=== PATIENT | male | born 1985 | race Caucasian/White ===

== ENCOUNTER → 2021-02-23 | Outpatient (CLI) | payer OTHER, SELFPAY | END | disposition home or self-care (01) | LOC: LABSPEC 02-24 12:59 | PROVIDERS: Visit Provider Physician Assistant | DX: U07.1 COVID-19 (principal) | CPT/HCPCS: 87635; U0005; U0003 ==

== ENCOUNTER → 2024-06-23 | Outpatient (CLI) | payer OTHER, SELFPAY ==
[2024-06-23 23:18] LABS: Absolute Lymphocyte Count 2.12 X10^3/uL (0.83-4.51); Absolute Neutrophil Count 6.7 X10^3/uL (2.0-7.7); Basophil# 0.07 X10^3/uL; Basophil% 0.7 % (0-1); Eosinophil# 0.27 X10^3/uL; Eosinophils% 2.8 % (0-5); Hematocrit 45.2 % (40-54); Hemoglobin 14.5 g/dL (13.0-16.5); Lymphocyte # 2.12 X10^3/ul (0.83-4.51); Lymphocyte % 21.7 % (19-41); Mean Corp Hgb Conc 32.1 g/dL (32-36); Mean Corpuscular Hgb 26.5 pg (27.0-32.0); Mean Corpuscular Volume 82.5 fL (80-94); Mean Platelet Vol. 9.4 fl (6.2-12.0); Monocyte# 0.64 X10^3/uL; Monocyte% 6.6 % (0-10); NRBC Flagged by Analyzer 0 % (0-5); Neutrophil # 6.65 X10^3/uL (2.7-7.7); Platelet Count 363 K/mm3 (150-450); RBC Distribution Width CV 13.2 % (11.6-14.6); RBC Distribution Width SD 39.3 fl (35.1-43.9); Red Blood Count 5.48 M/mm3 (4.6-6.2); White Blood Count 9.8 K/mm3 (4.4-11.0)
[2024-06-25 17:07] LABS: Endomysial Antibody IgA Negative (Negative); Immunoglobulin A 339 mg/dL (90-386); t-Transglutaminase IgA <2 U/mL (0-3)
== END | disposition home or self-care (01) ==
PROVIDERS: PCP Nurse Practitioner Family; Referring Provider Nurse Practitioner Acute Care; Visit Provider Nurse Practitioner Acute Care
DX: K62.5 Hemorrhage of anus and rectum (principal); R19.4 Change in bowel habit
CPT/HCPCS: 36415; 82784; 83516; 85025; 86255

== ENCOUNTER 2024-06-30 10:48 | Day surgery (SDC) | payer OTHER, SELFPAY ==
[2024-06-30] VITALS (8 sets, daily range): BP systolic 90–151; BP diastolic 53–98; PULSE 77–89; RESP 16; TEMP 36.3–36.9; O2SAT 94–98; BMI 38.0
--- NOTE | 2024-06-30 | IMM_PTH ---
PATIENT: ABDIAS KAISER LOC: ROBERTO U#:[id number] AGE/SX: 39/M ROOM: RE06/30/[address]: Dr. Ben Solomon DO : 1985 BED: DIS: 06/30/2024 SPEC #: [id number] RECD: 07/02/24 10:29 STATUS: SURENDRA REQ #: [id number] SAUL: 06/30/24 00:[address]: Ben Solomon DEPT: IMMUNOHISTOCHEMISTRY RECD BY: Jr Bobby ENTERED: 07/02/24 10:30 SP TYPE: IMMUNO OTHR DR: Leslie Draper, AIRCRAFT RESTORER-C Tissues: Colon, NOS Procedures: MSH2 (add) MLH-1 (add) MSH6 (add) Anti-PMS2 (add) KI-67 (add) P53 (add) MOC-31 (add) HER-2-LESLI (initial) PHYSICIAN & INSTITUTION [address] [address] SPECIMEN INFORMATION: Tissue Source: Rectal mass biopsy Clinical Info: Rectal bleeding, change in bowel habits Specimen Number: [id number] CPT code: 48982,48118j8 METHODOLOGY: Deparaffinized sections of prefer/formalin-fixed tissue or PAP/DQ stained slides are incubated with monoclonal/polyclonal antibodies/oligonucleotide probes. Localization is made via biotin free immunoperoxidase method. Appropriate controls are performed and reacted as expected. Results on target cell population are indicated in the following table: RESULTS: ANTIBODY / CLONE RESULT Her-2neu (CB11) negative (0) MOC-31 (4561) positive MLH-1 (M1) positive MSH2 (25D12) positive MSH6 (44) positive PMS2 (LNG2010) positive Ki-67 (30-9) positive, high P53 (DO-7) negative (null pattern) Testing for Her2 by IHC if equivocal, recommend testing for Her2 by FISH(remove/not needed) These tests were developed and their performance characteristics determined by [facility]. They may not have been cleared or approved by the U.S. Food and Drug Administration. The FDA has determined that such clearance or approval is not necessary. The above immunohistochemical/dualISH markers are ordered and reviewed by the Pathologist. INTERPRETATION: Rectal mass, biopsy: Invasive adenocarcinoma. Result of Microsatellite Instability Study: Negative (no loss of mismatch protein; no microsatellite instability detected). 07/03/2024
--- NOTE | 2024-06-30 | IMM_PTH ---
PATIENT: ABDIAS KAISER LOC: ROEBRTO U#:[id number] AGE/SX: 39/M ROOM: RE06/30/[address]: Dr. Ben Solomon DO : 1985 BED: DIS: 06/30/2024 SPEC #: [id number] RECD: 07/02/24 10:29 STATUS: SURENDRA REQ #: [id number] SAUL: 06/30/24 00:[address]: Ben Solomon DEPT: IMMUNOHISTOCHEMISTRY RECD BY: Jr Bobby ENTERED: 07/02/24 10:30 SP TYPE: IMMUNO OTHR DR: Leslie Draper, SAMPLE CARRIER-C Tissues: Colon, NOS Procedures: MSH2 (add) MLH-1 (add) MSH6 (add) Anti-PMS2 (add) KI-67 (add) P53 (add) MOC-31 (add) HER-2-LESLI (initial) PHYSICIAN & INSTITUTION [address] [address] SPECIMEN INFORMATION: Tissue Source: Rectal mass biopsy Clinical Info: Rectal bleeding, change in bowel habits Specimen Number: [id number] CPT code: 68015,08366y7 METHODOLOGY: Deparaffinized sections of prefer/formalin-fixed tissue or PAP/DQ stained slides are incubated with monoclonal/polyclonal antibodies/oligonucleotide probes. Localization is made via biotin free immunoperoxidase method. Appropriate controls are performed and reacted as expected. Results on target cell population are indicated in the following table: RESULTS: ANTIBODY / CLONE RESULT Her-2neu (CB11) negative (0) MOC-31 (4561) positive MLH-1 (M1) positive MSH2 (25D12) positive MSH6 (44) positive PMS2 (WDG9820) positive Ki-67 (30-9) positive, high P53 (DO-7) negative (null pattern) Testing for Her2 by IHC if equivocal, recommend testing for Her2 by FISH(remove/not needed) These tests were developed and their performance characteristics determined by [facility]. They may not have been cleared or approved by the U.S. Food and Drug Administration. The FDA has determined that such clearance or approval is not necessary. The above immunohistochemical/dualISH markers are ordered and reviewed by the Pathologist. INTERPRETATION: Rectal mass, biopsy: Invasive adenocarcinoma. Result of Microsatellite Instability Study: Negative (no loss of mismatch protein; no microsatellite instability detected). 07/03/2024
--- NOTE | 2024-06-30 11:04 | PCM.HP.STD ---
HPI - General General Date of Admission: 06/30/24 Date of Service: 06/30/24 Chief Complaint: diarrhea HPI Narrative ABDIAS KAISER, is a 39 M who presents for colonoscopy today. This started in February when he was really constipated (had never been constipated before) so he drank mag citrate and ate taco teran and that took care of the constipation. After that he has only had oily, fatty diarrhea. Was on a protein diet before this happened so he has stopped the protein diet. Thursday 06/15 he had really bad bright red blood in the fatty mucous stuff. Sunday and Sunday (06/16 and 06/17) he had normal type diarrhea until late Sunday (06/17) it was fire engine red then was just fatty and mucous stuff. 06/21 it was like a damn broke and it was brown watery stool gushing out. Thursday 06/22 back to mucous, fatty and frothy and a deeper red than before. Testicles are feeling engorged as well. Has a family history of colon cancer. Had Covid pneumonia and blood clots related to that. He also has complaints of bloody stool. - intermittent episodes of rectal bleeding - bright red blood - this past Sunday, like a dam broke watery diarrhea - mucus, fatty and frothy - Paternal GM with colon cancer, Maternal GF with colon CA - he reports a weight loss of 70lbs in the past year - states this was intentional and no increase in weight loss since onset of symptoms February 2024 - denies any h/o pancreatitis - Type 2 DM - HTN - HLD - denies any recent imaging or labs - denies any heart or lung disease - former smoker - rare alcohol use - denies any abdominal pain - he has not seen his PCP for any of his GI symptoms - he has never had a colonoscopy - reports he can wake in the middle of the night with stools - denies any ATB - denies any family h/o celiac, IBD - denies taking any medications to slow down stools FOR[facility]LY [facility], [facility] Medical History Wears glasses Gout High cholesterol DVT (deep venous thrombosis) Former smoker History of edema Neuropathy Back pain Right wrist pain Acute streptococcal pharyngitis Diabetes SOB (shortness of breath) Arthritis HTN (hypertension) Home Medications ?Medication ?Instructions ?Recorded ?Last Taken ?Type allopurinol 100 mg tablet 100 mg PO DAILY 10/11/22 Unknown History atorvastatin 40 mg tablet 40 mg PO DAILY 10/11/22 Unknown History glipizide 2.5 mg tablet, extended 2.5 mg PO DAILY 10/11/22 Unknown History release 24 hr lisinopril 10 mg tablet 10 mg PO DAILY 10/11/22 Unknown History metformin 1,000 mg tablet 1,000 mg PO BID 10/11/22 Unknown History peg 3350-electrolytes 236 240 ml PO Q10M bowel prep #4,000 mL 06/23/24 Unknown Rx gram-22.74 gram-6.74 gram-5.86 gram solution (Golytely) Allergy/AdvReac Type Severity Reaction Status Date / Time No Known Allergies Allergy Verified 06/25/24 14:26 Family History Grandmother Colon cancer Grandfather Colon cancer Other Angina pectoris Blood clot in vein Cancer Cervical cancer Diabetes Kidney disease Liver disease Thyroid disorder Social History Smoking Status: Former smoker Smokeless tobacco user: chewing tobacco alcohol intake: current Alcohol type: beer Physical Exam Const alert, oriented x3, no apparent distress and healthy appearing General Appearance: cooperative GI normal to inspection, nondistended, normoactive bowel sounds, soft to palpation, non-tender and non-distended Percussion: normal to percussion Rectal Exam: deferred Assessment & Plan Assessment/Plan (1) Rectal bleeding: (2) Change in bowel habits: PLAN: Plan Assessment and Plan Assessment and Plan (1) Change in bowel habits: Status: Acute (2) Rectal bleeding: Status: Acute Orders: Orders CBC W/Diff, Automated Today K62.5 - Hemorrhage of anus and rectum, R19.4 - Change in bowel habit Pancreatic Elastase, Fecal Today K62.5 - Hemorrhage of anus and rectum, R19.4 - Change in bowel habit Calprotectin, Stool Today K62.5 - Hemorrhage of anus and rectum, R19.4 - Change in bowel habit ENTERIC PATHOGEN PANEL STOOL Today K58.9 - Irritable bowel syndrome, unspecified, K62.5 - Hemorrhage of anus and rectum, R19.4 - Change in bowel habit CDIFF (PCR) Today K62.5 - Hemorrhage of anus and rectum, R19.4 - Change in bowel habit Giardia Lamblia, Stool EIA Today K62.5 - Hemorrhage of anus and rectum, R19.4 - Change in bowel habit Celiac Disease Profile Today K62.5 - Hemorrhage of anus and rectum, R19.4 - Change in bowel habit Ova and Parasites 8623 Today K58.9 - Irritable bowel syndrome, unspecified, K62.5 - Hemorrhage of anus and rectum, R19.4 - Change in bowel habit Colonoscopy Today K62.5 - Hemorrhage of anus and rectum, R19.4 - Change in bowel habit Medications: New peg 3350-electrolytes 236-22.74-6.74 -5.86 gram (Golytely) take as directed for split dose bowel prep 240 mL PO Q10M 4,000 mL 0RF bowel prep Plan 39y/o male presents for consultation with complaints of a change in bowel habits and rectal bleeding which began February 2024. PMH is significant for DMII, HTN, HLD. He reports he was initially constipated and after drinking mag citrate he developed oily, fatty diarrhea which he reports can be frothy and contain mucus at times. Over the past two weeks he reports developing an increase in intermittent bleeding. He is experiencing frequent stools which are typically small. He denies any new medications. The past few years he has been eating a high protein/low carbohydrate diet, but reports decreasing protein intake over the past 6 weeks with no change in symptoms. He reports an intentional weight loss of 70lbs over the past year. He denies any abdominal pain. I have ordered labs, stool testing and scheduled him for a colonoscopy. Plan Details Follow Up: 2 Months
--- NOTE | 2024-06-30 12:30 | COLBX_PTH ---
PATIENT: ABDIAS KAISER LOC: EN U#:[id number] AGE/SX: 39/M ROOM: RE06/30/[address]: Dr. Ben Solomon DO : 1985 BED: DIS: 06/30/2024 SPEC #: [id number] RECD: 06/30/24 16:49 STATUS: SURENDRA SWANChristophe #: [id number] SAUL: 06/30/24 12:[address]: Ben Solomon DEPT: SURGICAL PATHOLOGY RECD BY: Martha Schultz ENTERED: 07/01/24 10:13 SP TYPE: COLON BX OT DR: Leslie Draper, BOTTLING EQUIPMENT SALES REPRESENTATIVE-C Tissues: Rectum, NOS Procedures: Surgery Specimen Level IV HEADER OPERATION: Colonoscopy with biopsies PRE-OP DIAGNOSIS: Rectal bleeding, change in bowel habits TISSUE SUBMITTED: Rectal mass biopsy MICROSCOPIC DIAGNOSIS Rectal mass, biopsy: Moderately differentiated invasive adenocarcinoma. See patria. 07/02/2024 COMMENT Immunohistochemistry ([id number]) for microsatellite instability (mismatch repair of protein) will be performed, and the results will be reported separately. This case has been reviewed in consultation with Dr. Kendrick who concurs with the above diagnosis. IDC:PW MICROSCOPIC DESCRIPTION Slides are reviewed. GROSS DESCRIPTION Received in fixative is one container labeled with the patient's name and designated Rectal mass biopsy. The specimen consists of multiple irregular fragments of light jorge soft tissue that in aggregate measure 1.7 x 0.3 x 0.3 cm. The specimen is totally submitted in one cassette. GERMÁNJeaneth 07/01/2024 TC:0 CPT:82484 ADDENDUM ADDENDUM ADDENDUM ADDENDUM ADDENDUM ADDENDUM ADDENDUM ADDENDUM ADDENDUM ADDENDUM 08/06/2024 08:27 ADDENDUM 08/06/2024 08:27 ADDENDUM 08/08/2024 08:24 ADDENDUM 08/06/2024 08:27 ADDENDUM 08/06/2024 08:27 ADDENDUM 08/06/2024 08:27 This addendum is added to incorporate an outside pathology consultation report. The case was examined at [facility] (#[id number]) and the following diagnosis was rendered. A. Rectum, mass, biopsy: Invasive adenocarcinoma, moderately differentiated. Please see complete above mentioned consultation report in EMR [facility] NGS REPORT FROM [employer] RESULT SUMMARY: ABNORMAL TUMOR TYPE: ADENOCARCINOMA CLINICAL INFORMATION: Rectal mass biopsy showed moderately differentiated adenocarcinoma (Testing performed on [id number]). HISTOPATHOLOGIC REVIEW: Tumor is present and is estimated to comprise 20-50% of nuclei in the sample. DETECTED GENOMIC ALTERATIONS: Tier I: Variants of strong clinical significance KRAS p. ([id number]) Tier II: Variant of potential clinical significance APC p. ([id number]) TP53 p ([id number]) IMMUNOTHERAPY BIOMARKERS: TUMOR MUTATION BURDEN: LOW (3.9 MUTATIONS / MB) MICROSATELLITE INSTABILITY: MSI NEGATIVE (0.8%) Please see complete report in e-chart or EMR
--- NOTE | 2024-06-30 12:38 | PRE.ANES_ITS ---
ASA Classification* ASA Classification ASA Classification: 2 Assessment & Plan Anesthesia* Anesthesia Assessment Anesthesia Assessment: Discussed sedation and/or anesthesia options, risks, benefits, and alternatives with patient/parents/legal guardian/POA. Questions invited. The patient/parents/legal guardian/POA seems to understand and agrees to proceed with anesthesia plan. Reviewed the physical assessment, medical history, allergy history and patient home medications list prior to surgery/procedure/anesthetic and documented any changes. Performed airway and anesthesia risk assessments. Anesthesia Type Anesthesia Type: MAC History Source History Obtained from:: Patient and Chart Anesthesia Focused Assessment* Temperature: 98.4 F Pulse Rate: 89 Blood Pressure: 151/98 Respiratory Rate: 16 Pulse Ox: 98 Oxygen Delivery Method: Room Air Airway Assessment Mouth opens: >3 cm Mallampati Score: I Teeth Condition: Intact and Caps/Crowns Neck Range of motion (ROM): Full ROM Comment: large facial collins Focused Labs Anesthesia Preop lab: CBC WBC 9.8 K/mm3 (4.4-11.0) 06/23/24 15:15 RBC 5.48 M/mm3 (4.6-6.2) 06/23/24 15:15 Hgb 14.5 g/dL (13.0-16.5) 06/23/24 15:15 Hct 45.2 % (40-54) 06/23/24 15:15 Plt Count 363 K/mm3 (150-450) 06/23/24 15:15 CHEMISTRY COAG Pre-Assessment Diagnosis/Proposed Procedure Planned Operative Procedure(s): CSCOPE Anesthesia History 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 When Was Last Pacemaker Check QUESTION #4 FULL TEXT: You/Your Family Experience fever (hyperthermia) with Anesthesia Last Oral Intake Last Oral intake: Last Oral Intake NPO since 00:01 06/30/24 11:48 Meds taken in AM with sips of No 06/30/24 11:48 water? Meds patient instructed to take am of surgery PONV PONV - powder coat painter: PONV - powder coat painter Female No 06/25/24 14:27 HX of Motion Sickness No 06/25/24 14:27 HX of N/V After Surgery No 06/25/24 14:27 Non-Smoker Yes 06/25/24 14:27 Duration of Surgery greater No 06/25/24 14:27 than 60 minutes Number of Risk Factors 1 06/25/24 14:27 PONV Score Low Risk 06/25/24 14:27 Height & Weight Height & Weight: Anesthesia: Height & Weight Height 6 ft 2 in 06/30/24 11:48 Weight: 134.5 kg 06/30/24 11:48 Body Mass Index (BMI) 38.0 06/30/24 11:48 Respiratory Assessment Respiratory Assessment - powder coat painter: Respiratory Tract Infection Hx - powder coat painter Hx Respiratory Tract Infection No 06/25/24 14:27 STOP Sleep Apnea STOP Sleep Apnea - powder coat painter: STOP Sleep Apnea - powder coat painter Hx Hypertension Yes: CONTROLLED WITH MED 06/25/24 14:27 Hx Sleep Apnea No 06/25/24 14:27 CPAP BIPAP Do you snore loudly (louder No 06/25/24 14:27 than talking or can be heard Do you often feel tired/ No 06/25/24 14:27 fatigued/ sleepy during daytime? Has anyone observed you stop No 06/25/24 14:27 breathing during sleep? STOP Results Negative 06/25/24 14:27 QUESTION #5 FULL TEXT : Do you snore loudly (louder than talking or can be heard through closed doors)? 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 Specify any problems Hx of Preganancy in last 3 N/A 06/25/24 14:27 Months Nurse Filling Out Transfusion NBUCHER 06/25/24 14:27 & Questions: Date: 06/25/24 06/25/24 14:27 Time: 14:28 06/25/24 14:27 Patient unable to answer at this time (ie. confused, unrespo /Reproduction History /Reproductive History - powder coat painter: /Reproductive Hx- powder coat painter Hx Now No 06/25/24 14:27 Gestational Age (in weeks): EDC: Hx Hx Para Hx Section SAB No 06/25/24 14:27 PFSH Medical History Wears glasses Gout High cholesterol DVT (deep venous thrombosis) Former smoker History of edema Neuropathy Back pain Right wrist pain Acute streptococcal pharyngitis Diabetes SOB (shortness of breath) Arthritis HTN (hypertension) Home Medications ?Medication ?Instructions ?Recorded ?Last Taken ?Type allopurinol 100 mg tablet 100 mg PO DAILY 10/11/22 06/27/24 History atorvastatin 40 mg tablet 40 mg PO DAILY 10/11/22 06/27/24 History glipizide 2.5 mg tablet, extended 2.5 mg PO DAILY 10/11/22 Unknown History release 24 hr lisinopril 10 mg tablet 10 mg PO DAILY 10/11/22 06/27/24 History metformin 1,000 mg tablet 1,000 mg PO BID 10/11/22 06/26/24 History peg 3350-electrolytes 236 240 ml PO Q10M bowel prep #4,000 mL 06/23/24 06/30/24 Rx gram-22.74 gram-6.74 gram-5.86 gram solution (Golytely) Allergy/AdvReac Type Severity Reaction Status Date / Time No Known Allergies Allergy Verified 06/30/24 11:46 Family History Grandmother Colon cancer Grandfather Colon cancer Other Angina pectoris Blood clot in vein Cancer Cervical cancer Diabetes Kidney disease Liver disease Thyroid disorder Social History Smoking Status: Former smoker Smokeless tobacco user: chewing tobacco alcohol intake: current Alcohol type: beer Review of Systems (Anesthesia) ROS Narrative System reviewed and no additional complaints, except as documented.
[2024-06-30 13:04] LABS: Bedside Glucose 102 mg/dL (74-106)
--- NOTE | 2024-06-30 13:12 | OP.COLON_ITS ---
Patient Name: Brayden Lyle Procedure Date: 06/30/2024 12:42 PM Date of : 1985 Age: 39 Procedure: Colonoscopy Indications: Clinically significant diarrhea of unexplained origin, Hematochezia Providers: Ben Solomon DO Referring MD: Rafy Blount Medicines: Monitored Anesthesia Care Patient Profile: This is a 39 year old male. Refer to note in patient chart for documentation of history and physical. Last Colonoscopy: none. The patient's first colonoscopy is today. Complications: No immediate complications. Procedure: Pre-Anesthesia Assessment: - Prior to the procedure, a History and Physical was performed, and patient medications and allergies were reviewed. The patient is competent. The risks and benefits of the procedure and the sedation options and risks were discussed with the patient. All questions were answered and informed consent was obtained. Patient identification and proposed procedure were verified by the physician in the pre-procedure area. Mental Status Examination: alert and oriented. Airway Examination: normal oropharyngeal airway and neck mobility. Respiratory Examination: clear to auscultation. CV Examination: normal. Prophylactic Antibiotics: The patient does not require prophylactic antibiotics. Prior Anticoagulants: The patient has taken no anticoagulant or antiplatelet agents except for NSAID medication. ASA Grade Assessment: II - A patient with mild systemic disease. After reviewing the risks and benefits, the patient was deemed in satisfactory condition to undergo the procedure. The anesthesia plan was to use monitored anesthesia care (MAC). Immediately prior to administration of medications, the patient was re-assessed for adequacy to receive sedatives. The heart rate, respiratory rate, oxygen saturations, blood pressure, adequacy of pulmonary ventilation, and response to care were monitored throughout the procedure. The physical status of the patient was re-assessed after the procedure. After I obtained informed consent, the scope was passed under direct vision. Throughout the procedure, the patient's blood pressure, pulse, and oxygen saturations were monitored continuously. The Colonoscope was introduced through the anus and advanced to the cecum, identified by appendiceal orifice and ileocecal valve. The colonoscopy was performed without difficulty. The patient tolerated the procedure well. The quality of the bowel preparation was 70 percent obscured. Scope In: 12:54:12 PM Scope Out: 1:04:19 PM Total Procedure Duration Time 0 hours 10 minutes 7 seconds Findings: The perianal and digital rectal examinations were normal. An ulcerated non-obstructing large mass was found in the rectum. The mass was circumferential. The mass measured ten cm in length. In addition, its diameter measured thirteen mm. Oozing was present. This was biopsied with a cold forceps for histology. Verification of patient identification for the specimen was done. Estimated blood loss was minimal. Extensive amounts of stool was found in the entire colon, precluding visualization. Multiple small and large-mouthed diverticula were found in the recto-sigmoid colon and sigmoid colon. Impression: - Malignant tumor in the rectum. Biopsied. - Stool in the entire examined colon. - Diverticulosis in the recto-sigmoid colon and in the sigmoid colon. Recommendation: - Discharge patient to home. - Resume previous diet. - Continue present medications. - Await pathology results. - Oncology referral - CT scan of the chest abdomen pelvis - CEA - Repeat colonoscopy for surveillance. Procedure Code(s): --- Professional --- 02036, Colonoscopy, flexible; with biopsy, single or multiple CPT copyright 2021 [employer]. All rights reserved. The codes documented in this report are preliminary and upon highway worker review may be revised to meet current compliance requirements. Ben Solomon DO 06/30/2024 1:12:09 PM This report has been signed electronically. Number of Addenda: 0 Note Initiated On: 06/30/2024 12:42 PM
--- NOTE | 2024-06-30 13:12 | PCM.POST.ANE ---
Anesthesia: Postop Eval I Current Vital Signs Temperature: 97.4 F Pulse Rate: 77 Blood Pressure: 90/53 Respiratory Rate: 16 Pulse Ox: 96 Oxygen Delivery Method: Room Air Assessment Airway patent: Yes Spontaneous unlabored respirations: Yes Mental status: Asleep nausea: No Vomiting: No Anesthesia Complication: No Fluid Hydration Crystalloid volume administer (ml): 60 Total IV fluid infused: 60 Progress Note Anesthesia document: Postop Eval 1 completed: Yes
--- NOTE | 2024-06-30 13:13 | OP.CCLET_ITS ---
06/30/2024 Rafy Blount Re : Colonoscopy procedure for Brayden Lyle Dear Bonny This procedure was performed on Sunday, June 30, 2024. My impressions and recommendations are as follows: Impressions : - Malignant tumor in the rectum. Biopsied. - Stool in the entire examined colon. - Diverticulosis in the recto-sigmoid colon and in the sigmoid colon. Recommendations : - Discharge patient to home. - Resume previous diet. - Continue present medications. - Await pathology results. - Oncology referral - CT scan of the chest abdomen pelvis - CEA - Repeat colonoscopy for surveillance. My findings are described in the full procedure note, which is enclosed. If I can be of further assistance, please feel free to contact me at . Sincerely, Ben Solomon, 06/30/2024 1:12:09 PM This report has been signed electronically.
--- NOTE | 2024-06-30 14:20 | PCM.POSTANE2 ---
Anesthesia Postop Eval I Sum Postop Eval Completion status Anesthesia document: Postop Eval 1 completed: Yes Anesthesia Postop Eval I Summary Anesthesia Postop Eval I Summary: Anesthesia Postop Eval I: Assessment Summary Airway patent Yes 06/30/24 13:13 [email or web address] Spontaneous unlabored Yes 06/30/24 13:13 [email or web address] respirations Mental status Asleep 06/30/24 13:13 [email or web address] nausea No 06/30/24 13:13 [email or web address] Vomiting No 06/30/24 13:13 [email or web address] Anesthesia Postop Eval I: Fluid Summary Crystalloid volume administer 60 06/30/24 13:13 [email or web address] (ml) Colloids volume administered ( ml) Blood Product volume administered (ml) Total IV fluid infused 60 06/30/24 13:13 [email or web address] Anesthesia Postop Eval I: Summary Notes Anesthesia Complication No 06/30/24 13:13 [email or web address] Anesthesia Complication Comment: Post-operative progress note Anesthesia: Postop Eval II Evaluation Mental status: Awake Pain Level: 0 nausea: No Vomiting: No Complications Anesthesia Complication: No
== END 2024-06-30 14:08 | disposition home or self-care (01) ==
LOC: EN 10:49 → AC 10:50
PROVIDERS: PCP Nurse Practitioner Family; Referring Provider Internal Medicine Gastroenterology; Visit Provider Internal Medicine Gastroenterology
PROC: 0DJD8ZZ Inspection of Lower Intestinal Tract, Via Natural or Artificial Opening Endoscopic (ICD-10-PCS; CPT 45378; principal; 2024-06-30 12:25)
DX: C20 Malignant neoplasm of rectum (principal); E11.40 Type 2 diabetes mellitus with diabetic neuropathy, unspecified; K57.30 Diverticulosis of large intestine without perforation or abscess without bleeding; K62.5 Hemorrhage of anus and rectum; E78.00 Pure hypercholesterolemia, unspecified; Z80.0 Family history of malignant neoplasm of digestive organs; I10 Essential (primary) hypertension; F17.220 Nicotine dependence, chewing tobacco, uncomplicated; R19.4 Change in bowel habit; Z79.899 Other long term (current) drug therapy; Z79.84 Long term (current) use of oral hypoglycemic drugs
CPT/HCPCS: 45380; 81002; 82962; 88305; 88341; 88342; A4216; J2405

== ENCOUNTER → 2024-07-08 | Outpatient (CLI) | payer OTHER, SELFPAY ==
[2024-07-08 11:17] LABS: ALB/GLOB Ratio 1.1 RATIO (0.9-2.4); AST(SGOT) 15 U/L (15-37); Alanine Aminotransfer ALT/SGPT 17 U/L (16-61); Albumin, Serum 3.9 g/dL (3.2-5.0); Alkaline Phosphatase 75 U/L (45-117); Anion Gap 9 (5-15); BUN 13 mg/dL (7-18); Calcium,Total 9.4 mg/dL (8.5-10.1); Chloride 100 mmol/L (98-107); Creatinine, Serum 0.93 mg/dL (0.70-1.30); EST Glomerular Filtration Rate 97 mL/min (>60); Est Glom Filt Rate - Afr Amer 117 mL/min (>60); Globulin 3.6 g/dL (2.2-4.2); Glucose 298 mg/dL (74-106); Potassium 4.1 mmol/L (3.5-5.1); Protein, Total 7.5 g/dL (6.4-8.2); Sodium Level 134 mmol/L (136-145)
== END | disposition home or self-care (01) ==
PROVIDERS: PCP Nurse Practitioner Family; Referring Provider Nurse Practitioner Acute Care; Visit Provider Nurse Practitioner Acute Care
DX: K62.5 Hemorrhage of anus and rectum (principal); R19.4 Change in bowel habit; K62.89 Other specified diseases of anus and rectum
CPT/HCPCS: 36415; 80053; 82378

== ENCOUNTER → 2024-07-21 | Outpatient (CLI) | payer OTHER, SELFPAY ==
--- NOTE | 2024-07-21 07:40 | CT_ITS ---
EXAM: CT Abdomen and Pelvis With Intravenous Contrast CLINICAL INDICATION: TECHNIQUE: Axial computed tomography images of the abdomen and pelvis with intravenous contrast. This CT exam was performed using one or more of the following dose reduction techniques: automated exposure control, adjustment of the mA and/or kV according to patient size, and/or use of iterative reconstruction technique. COMPARISON: No relevant prior studies available. FINDINGS: LUNG BASES: Unremarkable. No mass. No consolidation. ABDOMEN: LIVER: Multiple ill-defined hypodense lesion of the liver, concerning for metastasis or primary neoplastic process. Clinical correlation is recommended. GALLBLADDER AND BILE DUCTS: Unremarkable. No calcified stones. No ductal dilation. PANCREAS: Unremarkable. No mass. No ductal dilation. SPLEEN: Unremarkable. No splenomegaly. ADRENALS: Unremarkable. No mass. KIDNEYS AND URETERS: Unremarkable. No solid mass. No hydronephrosis. STOMACH AND BOWEL: Fecal retention in the colon consistent with constipation. No obstruction. No mucosal thickening. PELVIS: APPENDIX: No findings to suggest acute appendicitis. BLADDER: Unremarkable. No mass. REPRODUCTIVE: Unremarkable as visualized. ABDOMEN and PELVIS: INTRAPERITONEAL SPACE: Unremarkable. No free air. No significant fluid collection. BONES/JOINTS: No acute fracture. No dislocation. SOFT TISSUES: Umbilical hernia containing fat. Inguinal hernias, bilaterally. VASCULATURE: Unremarkable. No abdominal aortic aneurysm. LYMPH NODES: Unremarkable. No enlarged lymph nodes. CT/Abdomen/Pelvis WITH Contrast IMPRESSION: 1. Multiple ill-defined hypodense lesion of the liver, concerning for metastas is or primary neoplastic process. Clinical correlation is recommended. 2. Fecal retention in the colon consistent with constipation. Underlying mass can not be excluded. 3. Umbilical hernia containing fat. 4. Inguinal hernias, bilaterally. Reading [facility]
== END | disposition home or self-care (01) ==
PROVIDERS: PCP Nurse Practitioner Family; Referring Provider Nurse Practitioner Acute Care; Visit Provider Nurse Practitioner Acute Care
DX: K62.5 Hemorrhage of anus and rectum (principal); R19.4 Change in bowel habit; K62.89 Other specified diseases of anus and rectum
CPT/HCPCS: 74177; Q9967

== ENCOUNTER → 2024-07-24 | Outpatient (CLI) | payer OTHER, SELFPAY ==
--- NOTE | 2024-07-24 13:56 | MRI_ITS ---
PROCEDURE: PELVIS W/WO CONTRAST REASON FOR EXAM: Staging rectal cancer. Bloody stool. TECHNIQUE: Multiplanar, multisequence MRI of the pelvis/rectum before and after IV gadolinium infusion. CONTRAST: 26 cc Clariscan intravenous COMPARISON: CT abdomen pelvis July 21, 2024. FINDINGS: Distal sigmoid colon circumferential/circular mass extending just below the peritoneal reflection into the superior most rectum. Tumor length is approximately 8 cm. Greatest thickness of tumor is along the left distal sigmoid wall measuring 2.6 cm. Bulky metastatic tumor implant in the sigmoid mesocolon measuring 4.7 x 3.1 x 2.8 cm. No colonic obstruction identified. The perirectal soft tissues are unremarkable. Mesorectal fascia and fat are normal. Superior left perirectal lymph node measuring 7.5 mm, suspicious for metastatic disease. No other perirectal adenopathy. No pelvic sidewall or inguinal adenopathy. Incidental moderate size umbilical fat containing hernia. MRI/Pelvis W/WO Contrast IMPRESSION: Distal sigmoid colon tumor measuring 8 cm in length extending just below the pe ritoneal reflection into the superior most rectum. Adjacent metastatic mass in the sigmoid mesocolon, measuring 4.7 cm. Probable metastatic upper left perirectal lymph node measuring 7.5 mm. No involvement of the mid or lower rectum. Reading Location: [facility]
== END | disposition home or self-care (01) ==
LOC: MRI 13:50
PROVIDERS: PCP Nurse Practitioner Family; Referring Provider Internal Medicine Hematology & Oncology; Visit Provider Internal Medicine Hematology & Oncology
DX: C20 Malignant neoplasm of rectum (principal)
CPT/HCPCS: 72197; A9575

== ENCOUNTER 2024-07-30 07:31 | Day surgery (SDC) | payer OTHER, SELFPAY ==
[2024-07-22 11:13] VITALS: BP 146/99; PULSE 73; RESP 16; TEMP 36.3; O2SAT 98; BMI 38.2
[2024-07-22 11:44] LABS: Bedside Glucose 156 mg/dL (74-106)
--- NOTE | 2024-07-22 12:11 | PRE.ANES_ITS ---
ASA Classification* ASA Classification ASA Classification: 2 Assessment & Plan Anesthesia* Anesthesia Assessment Anesthesia Assessment: Discussed sedation and/or anesthesia options, risks, benefits, and alternatives with patient/parents/legal guardian/POA. Questions invited. The patient/parents/legal guardian/POA seems to understand and agrees to proceed with anesthesia plan. Reviewed the physical assessment, medical history, allergy history and patient home medications list prior to surgery/procedure/anesthetic and documented any changes. Performed airway and anesthesia risk assessments. Anesthesia Type Anesthesia Type: MAC History Source History Obtained from:: Patient and Chart Anesthesia Focused Assessment* Temperature: 97.4 F Pulse Rate: 73 Blood Pressure: 146/99 Respiratory Rate: 16 Pulse Ox: 98 Oxygen Delivery Method: Room Air Airway Assessment Mouth opens: >3 cm Mallampati Score: II Teeth Condition: Missing (Patient has a couple missing molars. Rest of the teeth are tight.) Neck Range of motion (ROM): Limited ROM (Slight decrease in extension) Focused Labs Anesthesia Preop lab: CBC WBC 9.9 K/mm3 (4.4-11.0) 07/08/24 11:37 07/08/24 RBC 5.21 M/mm3 (4.6-6.2) 07/08/24 11:37 07/08/24 Hgb 14.2 g/dL (13.0-16.5) 07/08/24 11:37 07/08/24 Hct 41.7 % (40-54) 07/08/24 11:37 07/08/24 Plt Count 302 K/mm3 (150-450) 07/08/24 11:37 07/08/24 CHEMISTRY Potassium 4.1 mmol/L (3.5-5.1) 07/08/24 10:09 07/08/24 Sodium 134 mmol/L (136-145) L 07/08/24 10:09 07/08/24 Magnesium 1.6 mg/dL (1.6-2.6) 07/08/24 11:37 07/08/24 Phosphorus 3.0 mg/dL (2.5-4.9) 07/08/24 11:37 07/08/24 BUN 13 mg/dL (7-18) 07/08/24 10:09 07/08/24 Creatinine 0.93 mg/dL (0.70-1.30) 07/08/24 10:09 07/08/24 Glucose 298 mg/dL (74-106) H 07/08/24 10:09 07/08/24 POC Glucose 156 mg/dL (74-106) H 07/22/24 11:08 07/22/24 COAG Pre-Assessment Diagnosis/Proposed Procedure Planned Operative Procedure(s): LEFT SUBCLAVIAN MEDPORT PLACEMENT Anesthesia History 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 When Was Last Pacemaker Check QUESTION #4 FULL TEXT: You/Your Family Experience fever (hyperthermia) with Anesthesia Last Oral Intake Last Oral intake: Last Oral Intake NPO since 07:00 07/22/24 11:13 Meds taken in AM with sips of No 07/22/24 11:13 water? Meds patient instructed to take am of surgery Any additional information?: Yes NPO since: 07:00 (Patient water at 7 AM. 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 model maker Female No 07/21/24 09:19 HX of Motion Sickness No 07/21/24 09:19 HX of N/V After Surgery No 07/21/24 09:19 Non-Smoker Yes 07/21/24 09:19 Duration of Surgery greater No 07/21/24 09:19 than 60 minutes Number of Risk Factors 1 07/21/24 09:19 PONV Score Low Risk 07/21/24 09:19 Height & Weight Height & Weight: Anesthesia: Height & Weight Height 6 ft 2 in 07/22/24 11:13 Weight: 135.171 kg 07/22/24 11:13 Body Mass Index (BMI) 38.2 07/22/24 11:13 Respiratory Assessment Respiratory Assessment - jewelry model maker: Respiratory Tract Infection Hx - jewelry model maker Hx Respiratory Tract Infection No 07/21/24 09:19 STOP Sleep Apnea STOP Sleep Apnea - jewelry model maker: STOP Sleep Apnea - jewelry model maker Hx Hypertension Yes: CONTROLLED WITH MED 07/21/24 09:19 Hx Sleep Apnea No 07/21/24 09:19 CPAP BIPAP Do you snore loudly (louder Yes 07/21/24 09:19 than talking or can be heard Do you often feel tired/ No 07/21/24 09:19 fatigued/ sleepy during daytime? Has anyone observed you stop No 07/21/24 09:19 breathing during sleep? STOP Results Positive 07/21/24 09:19 QUESTION #5 FULL TEXT : Do you snore loudly (louder than talking or can be heard through closed doors)? 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 Specify any problems Hx of Preganancy in last 3 N/A 07/21/24 09:19 Months Nurse Filling Out Transfusion DSCHRIBER 07/21/24 09:19 & Questions: Date: 07/21/24 07/21/24 09:19 Time: 09:20 07/21/24 09:19 Patient unable to answer at this time (ie. confused, unrespo /Reproduction History /Reproductive History - jewelry model maker: /Reproductive Hx- jewelry model maker Hx Now Gestational Age (in weeks): EDC: Hx Hx Para Hx Section SAB No 07/21/24 09:19 Active Medications Active Medications: Current Medications Generic Name Dose Route Start Last Admin Trade Name Freq PRN Reason Stop Dose Admin Cefazolin Sodium 3 gm/ N/A 30 mls @ 600 mls/hr 07/22/24 12:15 IV 07/22/24 12:17 PREOP ONE PFS Medical History Cancer Wears glasses Gout High cholesterol DVT (deep venous thrombosis) Former smoker History of edema Neuropathy Back pain Right wrist pain Acute streptococcal pharyngitis Diabetes SOB (shortness of breath) Arthritis HTN (hypertension) Home Medications ?Medication ?Instructions ?Recorded ?Last Taken ?Type allopurinol 100 mg tablet 100 mg PO DAILY 10/11/2204/04 History atorvastatin 40 mg tablet 40 mg PO DAILY 10/11/2207/12 History glipizide 2.5 mg tablet, extended 2.5 mg PO DAILY 08/3107/21/24 History release 24 hr lisinopril 10 mg tablet 10 mg PO DAILY 10/11/2207/12 History metformin 1,000 mg tablet 1,000 mg PO BID 10/11/2204/04 History alprazolam 0.5 mg tablet 0.5 mg PO BID PRN PRN anxiet y 07/22/24 07/21/24 History oxycodone-acetaminophen 5 mg-325 1 - 2 tab PO Q4H PRN PRN pain 07/22/24 07/21/24 History mg tablet Allergy/AdvReac Type Severity Reaction Status Date / Time No Known Allergies Allergy Verified 07/22/24 11:09 Family History Grandmother Colon cancer Grandfather Colon cancer Mother Thyroid disorder Other Angina pectoris Blood clot in vein Cancer Diabetes Kidney disease Liver disease Surgical History Hx of colonoscopy Social History Smoking Status: Former smoker Tobacco: How many years used: 10 Smokeless tobacco user: chewing tobacco alcohol intake: current alcohol intake frequency: holidays/special occasions only Review of Systems (Anesthesia) ROS Narrative System reviewed and no additional complaints, except as documented.
[2024-07-22 12:19] VITALS: BP 146/99; PULSE 73; RESP 16; TEMP 36.3; O2SAT 98
[2024-07-30] VITALS (8 sets, daily range): BP systolic 122–132; BP diastolic 71–91; PULSE 84–118; RESP 16–20; TEMP 36.1–36.9; O2SAT 96–97; BMI 37.9
--- NOTE | 2024-07-30 08:19 | PCM.PRE.AN2 ---
ASA Classification* ASA Classification ASA Classification: 2 Assessment & Plan Anesthesia* Anesthesia Assessment Anesthesia Assessment: Discussed sedation and/or anesthesia options, risks, benefits, and alternatives with patient/parents/legal guardian/POA. Questions invited. The patient/parents/legal guardian/POA seems to understand and agrees to proceed with anesthesia plan. Reviewed the physical assessment, medical history, allergy history and patient home medications list prior to surgery/procedure/anesthetic and documented any changes. Performed airway and anesthesia risk assessments. Anesthesia Type Anesthesia Type: MAC History Source History Obtained from:: Patient and Chart Anesthesia Focused Assessment* Temperature: 97.3 F Pulse Rate: 84 Blood Pressure: 129/71 Respiratory Rate: 18 Pulse Ox: 97 Oxygen Delivery Method: Room Air Airway Assessment Mouth opens: >3 cm Mallampati Score: I Teeth Condition: Intact Neck Range of motion (ROM): Full ROM Focused Labs Anesthesia Preop lab: CBC WBC 9.9 K/mm3 (4.4-11.0) 07/08/24 11:37 07/08/24 RBC 5.21 M/mm3 (4.6-6.2) 07/08/24 11:37 07/08/24 Hgb 14.2 g/dL (13.0-16.5) 07/08/24 11:37 07/08/24 Hct 41.7 % (40-54) 07/08/24 11:37 07/08/24 Plt Count 302 K/mm3 (150-450) 07/08/24 11:37 07/08/24 CHEMISTRY Potassium 4.1 mmol/L (3.5-5.1) 07/08/24 10:09 07/08/24 Sodium 134 mmol/L (136-145) L 07/08/24 10:09 07/08/24 Magnesium 1.6 mg/dL (1.6-2.6) 07/08/24 11:37 07/08/24 Phosphorus 3.0 mg/dL (2.5-4.9) 07/08/24 11:37 07/08/24 BUN 13 mg/dL (7-18) 07/08/24 10:09 07/08/24 Creatinine 0.93 mg/dL (0.70-1.30) 07/08/24 10:09 07/08/24 Glucose 298 mg/dL (74-106) H 07/08/24 10:09 07/08/24 POC Glucose 156 mg/dL (74-106) H 07/22/24 11:08 07/22/24 COAG Pre-Assessment Diagnosis/Proposed Procedure Planned Operative Procedure(s): LEFT SUBCLAVIAN MEDPORT PLACEMENT Anesthesia History 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 When Was Last Pacemaker Check QUESTION #4 FULL TEXT: You/Your Family Experience fever (hyperthermia) with Anesthesia Last Oral Intake Last Oral intake: Last Oral Intake NPO since 23:45 07/30/24 07:57 Meds taken in AM with sips of No 07/30/24 07:57 water? 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 - petroleum sampler Female No 07/21/24 09:19 HX of Motion Sickness No 07/21/24 09:19 HX of N/V After Surgery No 07/21/24 09:19 Non-Smoker Yes 07/21/24 09:19 Duration of Surgery greater No 07/21/24 09:19 than 60 minutes Number of Risk Factors 1 07/21/24 09:19 PONV Score Low Risk 07/21/24 09:19 Height & Weight Height & Weight: Anesthesia: Height & Weight Height 6 ft 2 in 07/30/24 07:57 Weight: 134 kg 07/30/24 07:57 Body Mass Index (BMI) 37.9 07/30/24 07:57 Respiratory Assessment Respiratory Assessment - petroleum sampler: Respiratory Tract Infection Hx - petroleum sampler Hx Respiratory Tract Infection No 07/21/24 09:19 STOP Sleep Apnea STOP Sleep Apnea - petroleum sampler: STOP Sleep Apnea - petroleum sampler Hx Hypertension Yes: CONTROLLED WITH MED 07/21/24 09:19 Hx Sleep Apnea No 07/21/24 09:19 CPAP BIPAP Do you snore loudly (louder Yes 07/21/24 09:19 than talking or can be heard Do you often feel tired/ No 07/21/24 09:19 fatigued/ sleepy during daytime? Has anyone observed you stop No 07/21/24 09:19 breathing during sleep? STOP Results Positive 07/21/24 09:19 QUESTION #5 FULL TEXT : Do you snore loudly (louder than talking or can be heard through closed doors)? 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 Specify any problems Hx of Preganancy in last 3 N/A 07/21/24 09:19 Months Nurse Filling Out Transfusion DSCHRIBER 07/21/24 09:19 & Questions: Date: 07/21/24 07/21/24 09:19 Time: 09:20 07/21/24 09:19 Patient unable to answer at this time (ie. confused, unrespo /Reproduction History /Reproductive History - petroleum sampler: /Reproductive Hx- petroleum sampler Hx Now Gestational Age (in weeks): EDC: Hx Hx Para Hx Section SAB No 07/21/24 09:19 Active Medications Active Medications: Current Medications Generic Name Dose Route Start Last Admin Trade Name Freq PRN Reason Stop Dose Admin Cefazolin Sodium 3 gm/ N/A 30 mls @ 600 mls/hr 07/30/24 09:00 IV 07/30/24 09:02 PREOP ONE PFSH Medical History Regional lymph node metastasis present Metastasis to liver Cancer Wears glasses Gout High cholesterol DVT (deep venous thrombosis) Former smoker History of edema Neuropathy Back pain Right wrist pain Acute streptococcal pharyngitis Diabetes SOB (shortness of breath) Arthritis HTN (hypertension) Home Medications ?Medication ?Instructions ?Recorded ?Last Taken ?Type allopurinol 100 mg tablet 100 mg PO DAILY 10/11/22 07/29/24 History atorvastatin 40 mg tablet 40 mg PO DAILY 10/11/22 07/29/24 History glipizide 2.5 mg tablet, extended 2.5 mg PO DAILY 10/11/22 07/29/24 History release 24 hr lisinopril 10 mg tablet 10 mg PO DAILY 10/11/22 07/29/24 History metformin 1,000 mg tablet 1,000 mg PO BID 10/11/22 07/29/24 History alprazolam 0.5 mg tablet 0.5 mg PO BID PRN PRN anxiety 07/22/24 Unknown History oxycodone-acetaminophen 5 mg-325 1 - 2 tab PO Q4H PRN PRN pain 07/22/24 07/29/24 History mg tablet trazodone 50 mg tablet 50 mg PO QHS PRN insomnia 07/28/24 07/29/24 History Allergy/AdvReac Type Severity Reaction Status Date / Time No Known Allergies Allergy Verified 07/30/24 07:55 Family History Grandmother Colon cancer Grandfather Colon cancer Mother Thyroid disorder Other Angina pectoris Blood clot in vein Cancer Diabetes Kidney disease Liver disease Surgical History Hx of colonoscopy Social History Smoking Status: Former smoker Tobacco: How many years used: 10 Smokeless tobacco user: chewing tobacco alcohol intake: current alcohol intake frequency: holidays/special occasions only Review of Systems (Anesthesia) ROS Narrative System reviewed and no additional complaints, except as documented.
--- NOTE | 2024-07-30 08:22 | PCM.HP.STD ---
HPI - General General Date of Admission: 07/30/24 Date of Service: 07/30/24 Chief Complaint: port placement HPI Narrative ABDIAS KAISER, is a 39 M who presents for medport placement [facility] Medical History Regional lymph node metastasis present Metastasis to liver Cancer Wears glasses Gout High cholesterol DVT (deep venous thrombosis) Former smoker History of edema Neuropathy Back pain Right wrist pain Acute streptococcal pharyngitis Diabetes SOB (shortness of breath) Arthritis HTN (hypertension) Home Medications ?Medication ?Instructions ?Recorded ?Last Taken ?Type allopurinol 100 mg tablet 100 mg PO DAILY 10/11/22 07/29/24 History atorvastatin 40 mg tablet 40 mg PO DAILY 10/11/22 07/29/24 History glipizide 2.5 mg tablet, extended 2.5 mg PO DAILY 10/11/22 07/29/24 History release 24 hr lisinopril 10 mg tablet 10 mg PO DAILY 10/11/22 07/29/24 History metformin 1,000 mg tablet 1,000 mg PO BID 10/11/22 07/29/24 History alprazolam 0.5 mg tablet 0.5 mg PO BID PRN PRN anxiety 07/22/24 Unknown History oxycodone-acetaminophen 5 mg-325 1 - 2 tab PO Q4H PRN PRN pain 07/22/24 07/29/24 History mg tablet trazodone 50 mg tablet 50 mg PO QHS PRN insomnia 07/28/24 07/29/24 History Allergy/AdvReac Type Severity Reaction Status Date / Time No Known Allergies Allergy Verified 07/30/24 07:55 Family History Grandmother Colon cancer Grandfather Colon cancer Mother Thyroid disorder Other Angina pectoris Blood clot in vein Cancer Diabetes Kidney disease Liver disease Surgical History Hx of colonoscopy Social History Smoking Status: Former smoker Tobacco: How many years used: 10 Smokeless tobacco user: chewing tobacco alcohol intake: current alcohol intake frequency: holidays/special occasions only Vital Signs Vital Signs Vital Signs: 07/30/24 07:57 07/30/24 07:57 Temperature 97.3 F L Temperature Source Temporal Pulse Rate 84 Respiratory Rate 18 Respiratory Pattern Normal Blood Pressure 129/71 H Blood Pressure Mean 90 Blood Pressure Source Monitor Blood Pressure Position Left Lateral Blood Pressure Location Right Arm Pulse Ox 97 Oxygen Delivery Method Room Air Weight Weight: 295 lb 6.711 oz Body Mass Index (BMI) 37.9 Physical Exam Narrative AAO x 3 NAD Assessment & Plan Assessment/Plan (1) Metastasis to liver: (2) Encounter for insertion of venous access port: PLAN: medport placement today
[2024-07-30] MEDS: Cefazolin 3 GM in Syringe 1 EACH IV (08:48)
[2024-07-30] MEDS: Bupivacaine 0.5% PF 10 ML VIAL (09:03)
[2024-07-30] MEDS: Lidocaine 1% /Epi 1:100 (20ml) 20 ML Vial (09:03)
--- NOTE | 2024-07-30 09:42 | EX.PCM.DISCH ---
Discharge Instructions Diet Discharge Diet: Light diet - advance as tolerated Activity Discharge Activity: Return to Normal Activity and May Shower May shower in (days): 1 Ice area for (Minutes): 30 Dressing / Incision Call your doctor if your incision/area has: Continuous Slow Oozing, Sudden Increased Bleeding, Increased Pain/ Swelling, Increased Redness, Foul Smelling Discharge and Swelling at the incision site Call your doctor if you observe: Fever of 101 or Higher Remove Dressing in: 3 days Cleanse incision/area with: Soap & Water Follow Up Care Test Results: Test results from this visit will be discussed in further detail at your follow-up appointment, if applicable. Discharge Plan Admission Primary Reason for Your Visit: Mediport placement Attending Provider: Osmany Simmons Primary Care Provider: Leslie Draper NP Instructions Print Language: Sinhala Discharge Orders/Prescriptions Prescriptions: New oxycodone-acetaminophen [Percocet] 5-325 mg tablet 1 tab PO Q8H PRN (Reason: pain) 3 Days Qty: 7 0RF Continued metformin 1,000 mg tablet 1,000 mg PO BID Patient Comments: TAKE 1 TABLET BY MOUTH TWICE DAILY atorvastatin 40 mg tablet 40 mg PO DAILY allopurinol 100 mg tablet 100 mg PO DAILY Patient Comments: TAKE 1 TABLET BY MOUTH ONCE DAILY lisinopril 10 mg tablet 10 mg PO DAILY Patient Comments: TAKE 1 TABLET BY MOUTH ONCE DAILY glipizide 2.5 mg tablet extended release 24hr 2.5 mg PO DAILY Patient Comments: TAKE 1 TABLET BY MOUTH ONCE DAILY trazodone 50 mg tablet 50 mg PO QHS PRN (Reason: insomnia) oxycodone-acetaminophen 5-325 mg tablet 1 - 2 tab PO Q4H PRN PRN (Reason: pain) alprazolam 0.5 mg tablet 0.5 mg PO BID PRN PRN (Reason: anxiety) Referrals / Follow Up: Leslie Draper NP, MEDICAL TECHNOLOGIST [facility]AT[facility] [Primary Care Provider] - Disposition Disposition (needs filled in before D/C Order can be placed): Home, Self Care
--- NOTE | 2024-07-30 09:44 | PCM.POST.ANE ---
Anesthesia: Postop Eval I Current Vital Signs Temperature: 97 F Pulse Rate: 112 Blood Pressure: 128/91 Respiratory Rate: 20 Pulse Ox: 97 Assessment Airway patent: Yes Spontaneous unlabored respirations: Yes nausea: No Vomiting: No Anesthesia Complication: No Fluid Hydration Crystalloid volume administer (ml): 10 Total IV fluid infused: 10 Progress Note Anesthesia document: Postop Eval 1 completed: Yes
--- NOTE | 2024-07-30 09:45 | OP.PCM_ITS ---
Problems Associated Problem List Diagnoses (1) Rectal cancer: Procedures Cardiovascular CF Procedures [id number]: [id number] Insert tunneled cv cath Operative Report (Standard) Operative Information Date of Procedure: 07/30/24 Pre-Operative Diagnosis: Rectal cancer Post-Operative Diagnosis: Rectal cancer Surgery/Procedure Performed: Left subclavian Mediport placement with C arm forest pathology professor: No Type of Anesthesia: Local and MAC RN Documented Start/Stop Times: Operation Date: 07/30/24 09:00 Case Time Into Pre-Op 07/30/24 07:41 Out of Pre-Op 07/30/24 08:40 Anesthesia Start 07/30/24 08:45 Into Room 07/30/24 08:45 Procedure Start 07/30/24 09:07 Procedure End 07/30/24 09:34 Anesthesia End 07/30/24 09:39 Out of Room 07/30/24 09:39 Procedure Start Time: 09:07 Procedure Stop Time: 09:34 Select all DRAINS/GRAFTS/IMPLANTS that apply: Implanted device Implanted device details: PowerPort Mediport Special Medications: 3 g Ancef Estimated Blood Loss: 5 mL Specimen collected: No Description of surgery: The patient is a 39-year-old male recently discovered to have rectal cancer. It has been oncology team is recommending chemotherapy. It was recommended that he undergo Mediport placement to help facilitate the chemotherapy process. He was seen in the office. I discussed the details of the procedure including the risks benefits and alternatives. He wished to proceed. Patient was brought the operating room today following informed consent. Preoperative antibiotics were given and a timeout was performed. He was placed supine on the operative table with arms outstretched on arm boards. MAC a nesthesia was induced once adequately sedated the left upper chest and neck region were then prepped and draped in the usual sterile manner. His arms were at his sides. He was placed in mild Trendelenburg positioning. Local anesthetic was then injected into the left lovely-clavicular area. Next using the supplied needle and syringe I was able to gain access to the left subclavian vein. The blood return was a dark red, nonpulsatile, venous appearing blood return. The guidewire was then threaded through the aperture and the needle. This was then secured to the drapes. C-arm was brought into confirm good positioning of the tubing. The pocket was then created by making a small incision in the left upper chest. Bovie electrocautery was then used dissect down through subcutaneous tissue. A subcutaneous pocket was then created large enough to accommodate the port hub. The tubing was then inserted into the incision and brought out through a small incision at the entry point of the gu idewire. This was trimmed about 25 cm. The tubing was then connected to the port. The port was then affixed to the chest wall using Prolene suture. Once this was performed the dilator and tear-away sheath were then threaded over the guidewire. This was performed under C-arm. This was placed without incident. The guidewire and dilator were then removed thus leaving the sheath in place. The free end of the tubing was then threaded down the sheath and the sheath was then extracted as the tubing was advanced. The port was then tested using injectable saline. It eduardo and flushed easily with good blood return this was then repeated with heparin flush. C-arm was then used to again confirmed good position of the tubing and the port. There were no acute kinks or bends. The incision was then closed using 3-0 Vicryl and 4-0 Vicryl. Skin glue was applied as dressing along with 2 x 2 gauze and an OpSite. He was awakened from anesthesia and taken to recovery in good condition. Surgical Findings: See operative note Complications Complications: No Admit VTE Documentation VTE Present on Admission: No VTE Mechan Device Prophylaxis: SCD's VTE Pharm Prophylaxis ordered?: No Reason prophylaxis not ordered: Treatment Not Indicated
[2024-07-30 09:58] LABS: Bedside Glucose 180 mg/dL (74-106)
--- NOTE | 2024-07-30 10:00 | RAD_ITS ---
PROCEDURE: AP UPRIGHT PORTABLE CHEST REASON FOR EXAM: Status post port placement. TECHNIQUE: Upright frontal view(s). COMPARISON: None. FINDINGS: A left Port-A-Cath is present. Prominent lung markings in the lung bases may be hypoventilatory in nature. Heart and mediastinum are normal. Great vessels appear normal. No pneumothorax. No pleural effusions. Bones and soft tissues unremarkable. RAD/CXR for Line Placement IMPRESSION: Satisfactory left Port-A-Cath. Suspicion of hypoventilatory changes in the dependent lungs. Reading Location: [facility]
--- NOTE | 2024-07-30 11:43 | POSTOPAN2_ITS ---
Anesthesia Postop Eval I Sum Postop Eval Completion status Anesthesia document: Postop Eval 1 completed: Yes Anesthesia Postop Eval I Summary Anesthesia Postop Eval I Summary: Anesthesia Postop Eval I: Assessment Summary Airway patent Yes 07/30/24 09:45 [email or web address] Spontaneous unlabored Yes 07/30/24 09:45 EDGER TAILER.CSIR respirations Mental status nausea No 07/30/24 09:45 EDGER TAILER.CSIR Vomiting No 07/30/24 09:45 EDGER TAILER.CSIR Anesthesia Postop Eval I: Fluid Summary Crystalloid volume administer 10 07/30/24 09:45 EDGER TAILER.[email or web address] (ml) Colloids volume administered ( ml) Blood Product volume administered (ml) Total IV fluid infused 10 07/30/24 09:45 EDGER TAILER.CSIR Anesthesia Postop Eval I: Summary Notes Anesthesia Complication No 07/30/24 09:45 EDGER TAILER.CSIR Anesthesia Complication Comment: Post-operative progress note Anesthesia: Postop Eval II Evaluation Mental status: Awake Pain Level: 1 nausea: No Vomiting: No
--- NOTE | 2024-07-30 11:43 | PCM.POSTANE2 ---
Anesthesia Postop Eval I Sum Postop Eval Completion status Anesthesia document: Postop Eval 1 completed: Yes Anesthesia Postop Eval I Summary Anesthesia Postop Eval I Summary: Anesthesia Postop Eval I: Assessment Summary Airway patent Yes 07/30/24 09:45 INSTALLER INTERIOR [email or web address] Spontaneous unlabored Yes 07/30/24 09:45 INSTALLER INTERIOR [email or web address] respirations Mental status nausea No 07/30/24 09:45 INSTALLER INTERIOR [email or web address] Vomiting No 07/30/24 09:45 INSTALLER INTERIOR [email or web address] Anesthesia Postop Eval I: Fluid Summary Crystalloid volume administer 10 07/30/24 09:45 INSTALLER [employer]IOR [email or web address] (ml) Colloids volume administered ( ml) Blood Product volume administered (ml) Total IV fluid infused 10 07/30/24 09:45 INSTALLER INTERIOR [email or web address] Anesthesia Postop Eval I: Summary Notes Anesthesia Complication No 07/30/24 09:45 INSTALLER INTERIOR [email or web address] Anesthesia Complication Comment: Post-operative progress note Anesthesia: Postop Eval II Evaluation Mental status: Awake Pain Level: 1 nausea: No Vomiting: No
== END 2024-07-30 10:43 | disposition home or self-care (01) ==
LOC: SDC 07:32 → AC 07:34
PROVIDERS: PCP Nurse Practitioner Family; Referring Provider Surgery; Visit Provider Surgery
PROC: (CPT 36561; principal; 2024-07-30 08:45)
DX: Z45.2 Encounter for adjustment and management of vascular access device (principal); C78.7 Secondary malignant neoplasm of liver and intrahepatic bile duct; C20 Malignant neoplasm of rectum; E11.40 Type 2 diabetes mellitus with diabetic neuropathy, unspecified; E78.00 Pure hypercholesterolemia, unspecified; I10 Essential (primary) hypertension; F17.220 Nicotine dependence, chewing tobacco, uncomplicated; Z79.899 Other long term (current) drug therapy; Z79.84 Long term (current) use of oral hypoglycemic drugs; K62.5 Hemorrhage of anus and rectum; R19.4 Change in bowel habit; K62.89 Other specified diseases of anus and rectum
CPT/HCPCS: 36561; 00532; 71045; 74177; 77001; 82962; Q9967; A4216; C1788; J2405